=== PATIENT | female | born 2000 | race Caucasian/White ===

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

== ENCOUNTER 2021-09-14 16:58 | Emergency (ER) | payer SELFPAY ==
[2021-09-14 17:00] VITALS: BP 139/77; PULSE 110; RESP 15; TEMP 37; O2SAT 97; BMI 30.7
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
[2021-09-14 17:25] LABS: Basophils % 0.2 %; Eosinophils # 0.3 10^3/uL (0.0-0.8); Eosinophils % 2.9 %; Hemoglobin 13.9 g/dL (11.5-15.3); Lymphocytes # 2.3 10^3/uL (0.8-4.8); Lymphocytes % 25.5 %; Mean Corpuscular HGB Conc 34.8 g/dL (30.0-36.0); Mean Corpuscular Volume 83.3 fl (81-99); Mean Platelet Volume 9.7 fL (7.4-10.4); Monocytes # 0.5 10^3/uL (0.2-0.9); Monocytes % 5.7 %; Neutrophils # 5.95 10^3/uL (1.8-7.7); Neutrophils % 65.5 %; Nucleated Red Blood Cells % 0 %; Platelet Count 342 10^3/cmm (130-400); Red Cell Distribution Width 12.4 % (12.1-15.1); White Blood Count 9.1 10^3/uL (4.0-10.0)
[2021-09-14 17:35] LABS: Alanine Aminotransferase 18 U/L (0-33); Albumin Level 4.3 g/dL (3.5-5.2); Alkaline Phosphatase 76 IU/L (35-105); Anion Gap 16.6 (5-19); Aspartate Amino Transferase 14 U/L (0-32); Blood Urea Nitrogen 10 mg/dL (6-20); Calcium 9.8 mg/dL (8.5-10.5); Carbon Dioxide 24 mmol/L (22-29); Chloride 103 mmol/L (98-107); Globulin 2.8 g/dL (1.3-4.6); Glucose 145 mg/dL (65-115); Osmolality Calculated 292 mOsm/kg (285-295); Potassium 3.6 mmol/L (3.5-5.1); Sodium 140 mmol/L (136-145); Total Bilirubin 0.3 mg/dL (0.15-1.2); Total Protein 7.1 g/dL (6.6-8.7)
--- NOTE | 2021-09-14 18:31 | PC.NURSE ---
LEFT WRIST REDUCTION TIMEOUT CALLED 183 183 60MG PROPOFOL GIVEN BY DR. PAYAN 183 40MG PROPOFOL GIVEN BY DR. PAYAN 1833 FX REDUCED 1834 SPLINT APPLIED 1835 VS: 91 99% 148/84 1838 X RAY PT WAKING 1841
--- NOTE | 2021-09-14 18:35 | XRR_ITS ---
PROCEDURE INFORMATION: Exam: XR Left Hand Exam date and time: 09/14/2021 6:39 PM Age: 21 years old Clinical indication: Pain; Hand; Left; Additional info: Post reduction TECHNIQUE: Imaging protocol: Radiologic exam of the Left hand. Views: 3 or more views. COMPARISON: CR ( EX, ) 09/14/2021 5:28 PM FINDINGS: Bones/joints: Alignment of the 1st carpometacarpal joint is normal post reduction. No acute fracture. Soft tissues: Cast noted. XR/XR hand LT min 3V* [id number] IMPRESSION: Satisfactory alignment of the 1st carpometacarpal joint post reduction. No fracture.
[2021-09-14 18:43] VITALS: BP 148/84; PULSE 102; RESP 18; O2SAT 98
[2021-09-14] MEDS: propofol 10 mg/mL SDV 20 mL 100 MG IVP (18:46)
[2021-09-14] MEDS: ondansetron 2 mg/ML SDV 2 mL 4 MG IVP (19:19)
[2021-09-14 19:45] VITALS: BP 141/88; PULSE 97; RESP 16; TEMP 36.7; O2SAT 97
--- NOTE | 2021-09-16 15:09 | DCPLANNER ---
Addendum entered by Janet Buenrostro 09/24/21 13:49: Patient had a follow up appointment scheduled for 09.22.21 with Renato Esquivel at ortho - patient did attend appointment. Original Note: integrated logistics operations manager had message to schedule a follow up appointment for patient with ortho. integrated logistics operations manager sent patients information to the front office staff at ortho. Patients information will be printed and reviewed. Clinic will call patient with appointment information.
== END 2021-09-14 19:49 | disposition home or self-care (01) ==
PROVIDERS: Family Medicine; Emergency Provider Emergency Medicine
DX: S63.105A Unspecified dislocation of left thumb, initial encounter (principal); F17.210 Nicotine dependence, cigarettes, uncomplicated; V89.2XXA Person injured in unspecified motor-vehicle accident, traffic, initial encounter
CPT/HCPCS: 26770; 72040; 73110; 73130; 80053; 85025; 96374; 99284; J2405; J2704

== ENCOUNTER → 2021-09-22 08:42 | Outpatient (BNVA) | payer SELFPAY | PROVIDERS: Referring Provider Emergency Medicine; Visit Provider Nurse Practitioner Family | DX: S63.105A Unspecified dislocation of left thumb, initial encounter (principal); X58.XXXA Exposure to other specified factors, initial encounter | CPT/HCPCS: 73130 ==

== ENCOUNTER → 2021-10-20 09:01 | Outpatient (BNVA) | payer SELFPAY | PROVIDERS: Visit Provider Nurse Practitioner Family | DX: S63.105A Unspecified dislocation of left thumb, initial encounter (principal); V89.2XXA Person injured in unspecified motor-vehicle accident, traffic, initial encounter | CPT/HCPCS: 73130 ==

== ENCOUNTER 2022-04-04 07:19 | Outpatient (CLI) | payer BC, MEDICAID, SELFPAY ==
--- NOTE | 2022-04-04 07:33 | US_ITS ---
WS: [id number] ULTRASOUND OB COMPLETE TECHNIQUE: Complete ultrasound. CLINICAL INFORMATION: NORMAL FIRST -2ND TRIMESTER COMPARISON: None. FINDINGS: Closed cervix measuring 3.5 cm Single interuterine gestation is identified with vertex presentation. Placenta is posterior. Placenta grade 0. Normal amniotic fluid volume. cardiac activity: 144 BPM. SAM 12.07cm AGA: 21w4d MARY by ultrasound: 08/11/2022 Estimated weight: 462 g., %. BDP: 5.0 cm = 21w1d HC: 18.6 cm = 20w6d AC: 16.6 cm = 21w4d FEMUR LENGTH: 3.9 cm = 22w5d Anatomic survey: Anatomic survey is normal. Normal stomach. Kidneys and bladder are normal. Normal 3 vessel cord. Norm al 3 vessel cord insertion. Normal 4 chamber heart. Normal spine. Intracranial contents are normal. N ormal posterior fossa and cisterna magna. US/US OB >= 14 weeks fetus [id number] IMPRESSION: 1. Single intrauterine with visualized cardiac activity. AGA 21w4d w ith MARY 08/11/2022. 2. Placenta is posterior. No evidence of abruption or previa. 3. anatomic survey is normal. 4. Normal amniotic fluid volume.
== END 2022-04-04 07:20 | disposition home or self-care (01) ==
LOC: RAD 07:22
PROVIDERS: PCP Family Medicine; Visit Provider Family Medicine
DX: Z34.02 Encounter for supervision of normal first pregnancy, second trimester (principal)
CPT/HCPCS: 76805

== ENCOUNTER 2022-07-23 05:42 | Outpatient (CLI) | payer BC, MEDICAID, SELFPAY ==
[2022-07-23 05:35] VITALS: BMI 35.9
[2022-07-23 05:50] VITALS: BP 116/63; PULSE 100
[2022-07-23 06:05] VITALS: BP 108/62; PULSE 90
[2022-07-23 06:20] VITALS: BP 112/71; PULSE 94
[2022-07-23 06:23] VITALS: TEMP 36.1
[2022-07-23 06:35] VITALS: BP 115/66; PULSE 98
[2022-07-23 06:45] VITALS: BP 115/66; PULSE 98; TEMP 36.1
[2022-07-23 17:56] LABS: Nitrazine Paper, PH Negative
== END 2022-07-23 06:45 | disposition home or self-care (01) ==
LOC: OPOB 05:42 → OBGYN 05:43
PROVIDERS: PCP Family Medicine; Visit Provider Family Medicine
DX: O26.899 Other specified pregnancy related conditions, unspecified trimester (principal); N89.8 Other specified noninflammatory disorders of vagina; Z3A.00 Weeks of gestation of pregnancy not specified
CPT/HCPCS: 59025; 83986; 99211

== ENCOUNTER 2022-08-09 05:06 | Inpatient (IN) | payer BC, MEDICAID, SELFPAY ==
[2022-08-08] VITALS (9 sets, daily range): BP systolic 116–136; BP diastolic 61–84; PULSE 77–107; RESP 16; O2SAT 98–99
[2022-08-08] MEDS: dextrose 5%-lactated ringers 1,000 ML 125 ML IV (20:21)
[2022-08-08] MEDS: ampicillin 2,000 MG in sodium chloride 0.9% (plus) 50 ML 100 MG IV (20:22)
[2022-08-08 20:27] LABS: Basophils % 0.1 %; Eosinophils # 0.2 10^3/uL (0.0-0.8); Eosinophils % 1.6 %; Hematocrit 37.6 % (37.0-47.0); Hemoglobin 12.3 g/dL (11.5-15.3); Lymphocytes # 2.6 10^3/uL (0.8-4.8); Lymphocytes % 24.4 %; Mean Corpuscular HGB Conc 32.7 g/dL (30.0-36.0); Mean Corpuscular Hemoglobin 27.6 pg (28.0-34.0); Mean Corpuscular Volume 84.3 fl (81-99); Mean Platelet Volume 10.3 fL (7.4-10.4); Monocytes # 0.5 10^3/uL (0.2-0.9); Neutrophils # 7.41 10^3/uL (1.8-7.7); Neutrophils % 68.4 %; Nucleated Red Blood Cells % 0 %; Platelet Count 295 10^3/cmm (130-400); Red Blood Count 4.46 10^6/uL (4.1-5.3); Red Cell Distribution Width 13.2 % (12.1-15.1); White Blood Count 10.8 10^3/uL (4.0-10.0)
[2022-08-08] MEDS: miSOPROStol 100 mcg tablet 25 MCG VAGINAL (20:30)
[2022-08-08] MEDS: ampicillin 1,000 MG in sodium chloride 0.9% (plus) 50 ML 100 MG IV (23:42)
[2022-08-08] MEDS: promethazine 25 mg/mL SDV 1 mL IM (23:43)
[2022-08-08] MEDS: morphine 4 mg/mL SDV 1 mL 8 MG IM (23:44)
[2022-08-09] VITALS (202 sets, daily range): BP systolic 91–187; BP diastolic 56–121; PULSE 59–118; RESP 15–18; TEMP 26.8–37; O2SAT 97–100
[2022-08-09] MEDS: miSOPROStol 100 mcg tablet 25 MCG VAGINAL ×2 (00:30→04:29)
[2022-08-09] MEDS: lactated ringers 1,000 ML 999 ML IV ×2 (02:33→07:36)
[2022-08-09] MEDS: dextrose 5%-lactated ringers 1,000 ML 125 ML IV (03:39)
[2022-08-09] MEDS: ampicillin 1,000 MG in sodium chloride 0.9% (plus) 50 ML 100 MG IV ×3 (03:40→11:58)
[2022-08-09] MEDS: fentaNYL 50 mcg/mL INJ 2mL IVP (04:28)
--- NOTE | 2022-08-09 06:49 | PM.OPHPUD ---
Labor & Delivery H&P Update Date of Procedure: August 09, 2022 Date H&P Performed: 08/05/22 Changes to previous documentation: None Admission Diagnosis: 22-year-old 1 at 39 weeks estimated gestational age presenting for induction Primary indication for procedure: Elective induction Planned procedure: Vaginal delivery Other information: The patient is an otherwise healthy 22-year-old female who presents to the hospital last night for elective induction. We discussed the risks of elective induction including increased risk of a and operative vaginal delivery. The patient understood these risks and wished to proceed. Her blood type is O+ her antibody screen is negative she passed her glucose screen she was GBS positive she is rubella nonimmune the remainder of her infectious disease profile was within normal limits. Related Problem List Diagnoses (1) 39 weeks gestation of : (2) Group beta Strep positive: A&P Assessment and plan (1) 39 weeks gestation of : I anticipate routine induction. She has received Cytotec 25 mcg x 3. She is on GBS protocol. At this time is expected that she will have a vaginal delivery. Status: Acute (2) Group beta Strep positive: Status: Acute
--- NOTE | 2022-08-09 08:04 | ANES.PREANE2 ---
Pre-Anesthetic Assessment Height/Weight: Height 1.6 m Weight 203 g Temp Pulse Resp BP Pulse Ox O2 Del Method 97.3 F L 93 16 134/95 99 Room Air 08/09/22 06:43 08/09/22 08:00 08/09/22 04:28 08/09/22 07:59 08/09/22 08:00 08/09/22 05:00 Epidural Familial anesthetic complications: None Was Beta Brooke taken within 24 hours: N/A Was Clonidine taken within 24 hours: N/A Social No alcohol and No tobacco Exam alert, oriented x 3, clear to auscultation bilaterally and regular rate & rhythm Airway Mallampati: Class II Dentition: full Anesthetic Plan ASA status: 2 Anesthesia: Regional (specify below) (epidural) Risk of > 500 ml blood loss (7ml/kg in children): Yes, adequate IV access and fluids planned Medications/Allergies Home Medications Medication Instructions Recorded Confirmed Last Taken Type No Known Home Medications 08/08/22 08/08/22 Unknown History Allergies Allergy/AdvReac Type Severity Reaction Status Date / Time No Known Allergies Allergy Verified 08/08/22 20:07 Current Medications Generic Name Dose Route Start Last Admin Trade Name Freq PRN Reason Stop Dose Admin Fentanyl 25 - 100 mcg 08/08/22 19:55 08/09/22 04:28 Fentanyl 50 Mcg/Ml Inj 2ml IVP 25 mcg Q1H PRN Administration SEVERE PAIN Dextrose/Lactated Ringer's 1,000 mls @ 125 mls/hr 08/08/22 20:00 08/09/22 03:39 Dextrose 5%-Lactated Ringers IV 125 mls/hr .Q8H LEATHA Administration Lactated Ringer's 1,000 mls @ 999 mls/hr 08/08/22 19:55 08/09/22 07:36 Lactated Ringers IV 999 mls/hr .Q1H1M PRN Administration Per L&D Rescitation Protocol Ampicillin Sodium 1,000 mg/ 50 mls @ 100 mls/hr 08/08/22 23:45 08/09/22 07:36 Sodium Chloride IV 100 mls/hr Q4H LEATHA Administration Protocol Ropivacaine 100 mg in 50 mls @ 10 mls/hr 08/09/22 07:15 08/09/22 07:37 Naropin Syringe EPIDURAL 10 mls/hr .Q5H LEATHA Administration PFSH Anesthesia Medical History No pertinent past medical history Surgical History No pertinent past surgical history Social History Smoking and tobacco status: current some day smoker Alcohol intake: current Female Reproductive History : 1 Data Anesthesia 08/08/22 19:10 Short CBC 08/08/22 Range/Units 19:10 WBC 10.8 H (4.0-10.0) 10^3/uL Hgb 12.3 (11.5-15.3) g/dL Hct 37.6 (37.0-47.0) % MCV 84.3 (81-99) fl Plt Count 295 (130-400) 10^3/cmm Neut % (Auto) 68.4 % Neut # (Auto) 7.41 (1.8-7.7) 10^3/uL Cardiac Studies: No Data to Display
--- NOTE | 2022-08-09 08:05 | P.ANES_ITS ---
Anesthesia Procedures Procedure/Date: 08/09/22 Epidural: Time Out Performed: Yes Consents Signed: Procedure Consent Consent: requested by attending/covering physician, from patient, from other, risks and benefits reviewed, patient agrees to proceed and emergency procedure Lumbar Level: L3-L4 Epidural position: sitting Epidural procedure: ster ile prep of area, 1% lidocaine to numb the area, 18 g needle, negative for paresthesia passed, neg for paresthesia, test dose given, 1.5% xylocaine 1:200k epi (5 cc), 0.2% Ropivacaine bolus ml (5), placed PCEA, no systemic response, sterile dressing applied, L.U.D. no apparent complications and 0.2% Ropiavacaine @ mls/hr (10) Additional Comments: CLIFF at 6 cm, threaded to 12 cm
--- NOTE | 2022-08-09 13:46 | PM.DELIVERY ---
Delivery Note: Date of delivery: August 09, 2022 Pre-delivery diagnoses: 82-year-old 1 at 39 weeks estimated gestational age in active labor Post-delivery diagnoses: Status post spontaneous vaginal delivery Procedure: Spontaneous vaginal delivery Op report anesthesia: Epidural Pre-Delivery Course: The patient presented to the hospital the night prior to delivery was placed on Cytotec 25 mcg x 3. An epidural was placed. An amniotomy was performed. She progressed to complete without difficulty. She was GBS positive and was placed on group B strep protocol through the night. Delivery: DELIVERY: The patient progressed to complete without difficulty. She delivered a female with a weight of 6 pounds 6 ounces with Apgars of 9, 9. The baby was delivered from the NEFTALI position. and placed on the mother's abdomen. The cord was then clamped and cut. There was no nuchal cord. There was no meconium. The placenta and 3 vessel cord were delivered intact shortly thereafter. The perineum and vaginal vault were carefully examined. 2 vaginal wall first-degree tears were noted which were not bleeding significantly. No repair was required.. Both the mother and the baby were in stable condition. Post-Delivery Status: Good A&P Assessment and plan (1) Spontaneous vaginal delivery: I anticipate routine care. (2) Group beta Strep positive: (3) 39 weeks gestation of : Coding Level of Care Code Acute Code for Chg Fwd Diagnoses Spontaneous vaginal delivery O80 Group beta Strep positive B95.1 39 weeks gestation of Z3A.39
[2022-08-09] MEDS: docusate sodium 100 mg Capsule PO (19:00)
[2022-08-09] MEDS: ibuprofen 800 mg tablet PO (22:56)
[2022-08-09] MEDS: HYDROcodone-acetaminophen 5-325 mg Tablet PO (22:56)
[2022-08-10 00:50] VITALS: BP 112/81; PULSE 98; RESP 16; TEMP 36.8
[2022-08-10 03:53] VITALS: BP 122/81; PULSE 86; RESP 15; TEMP 36.9; O2SAT 98
[2022-08-10 03:57] LABS: Hematocrit 34.2 % (37.0-47.0); Mean Corpuscular HGB Conc 32.2 g/dL (30.0-36.0); Mean Corpuscular Hemoglobin 27.6 pg (28.0-34.0); Mean Corpuscular Volume 85.9 fl (81-99); Mean Platelet Volume 9.6 fL (7.4-10.4); Platelet Count 206 10^3/cmm (130-400); Red Blood Count 3.98 10^6/uL (4.1-5.3); Red Cell Distribution Width 13.4 % (12.1-15.1); White Blood Count 11.9 10^3/uL (4.0-10.0)
--- NOTE | 2022-08-10 07:37 | PM.OBGYDC ---
Discharge Providers LEARNING PROGRAM MANAGER Date of Admission: 08/09/22 05:06 Date of Discharge: 08/10/22 Attending Provider at Admission: Saran Tamez MD Attending Provider at Discharge: Saran Tamez MD Primary Care Provider: Saran Tamez MD Diagnoses at Discharge Discharge Diagnosis (1) Spontaneous vaginal delivery: Status: Acute (2) Group beta Strep positive: Status: Acute (3) 39 weeks gestation of : Status: Acute Reason for Visit Reason for Visit: induction Hospital Course Hospital Course The patient presented to the hospital for induction. Her induction was unremarkable. Her delivery was unremarkable. Her course was unremarkable. Her bleeding has been within normal limits. Her pain is been well controlled. She is breast-feeding well. Information Peripartum Data: Delivery Method: Vaginal Physical Exam Narrative: The patient is alert. She appears comfortable. Her heart has a regular rate and rhythm with no murmurs appreciated. Lungs are clear to auscultation bilaterally. Her fundus is firm and below the umbilicus. Urinary Catheter Management: Martinez: Cath Placed During This Visit: yes, but has since been removed by the nurse Reason for Continuing Indwelling Catheter: Decision to DC Catheter Urinary Catheter Date of Insertion: 08/09/22 Urinary Catheter Time of Insertion: 08:10 Date Urinary Catheter Removed: 08/09/22 Time Urinary Catheter Discontinued: 13:15 Discharge Data Studies Completed and Pending Laboratory Results WBC 11.9 10^3/uL (4.0-10.0) H 08/10/22 03:45 RBC 3.98 10^6/uL (4.1-5.3) L 08/10/22 03:45 Hgb 11.0 g/dL (11.5-15.3) L 08/10/22 03:45 Hct 34.2 % (37.0-47.0) L 08/10/22 03:45 MCV 85.9 fl (81-99) 08/10/22 03:45 MCH 27.6 pg (28.0-34.0) L 08/10/22 03:45 MCHC 32.2 g/dL (30.0-36.0) 08/10/22 03:45 RDW 13.4 % (12.1-15.1) 08/10/22 03:45 Plt Count 206 10^3/cmm (130-400) 08/10/22 03:45 MPV 9.6 fL (7.4-10.4) 08/10/22 03:45 Neut % (Auto) 68.4 % 08/08/22 19:10 Lymph % (Auto) 24.4 % 08/08/22 19:10 Davis % (Auto) 5.0 % 08/08/22 19:10 Eos % (Auto) 1.6 % 08/08/22 19:10 Baso % (Auto) 0.1 % 08/08/22 19:10 Neut # (Auto) 7.41 10^3/uL (1.8-7.7) 08/08/22 19:10 Lymph # (Auto) 2.6 10^3/uL (0.8-4.8) 08/08/22 19:10 Davis # (Auto) 0.5 10^3/uL (0.2-0.9) 08/08/22 19:10 Eos # (Auto) 0.2 10^3/uL (0.0-0.8) 08/08/22 19:10 Baso # (Auto) 0.0 10^3/uL (0.0-0.1) 08/08/22 19:10 Nucleated RBC % (auto) 0 % 08/08/22 19:10 Nucleated RBCs # 0.0 /100WBC 08/08/22 19:10 Vitals Last Vital Signs Temp 98.4 F 08/10/22 03:53 Pulse 86 08/10/22 03:53 Resp 15 08/10/22 03:53 BP 122/81 08/10/22 03:53 Pulse Ox 98 08/10/22 03:53 O2 Del Method Room Air 08/10/22 03:53 Discharge Plan Discharge Patient Disposition: Home Condition: Stable Prescriptions: New ibuprofen 800 mg Tablet 800 mg PO TID Qty: 45 0RF -U 106.5-1 mg Capsule 1 cap PO DAILY Qty: 90 0RF Discharge Orders: Discharge Order (Routine); Ordered 08/10/22 Ordered By: Saran Tamez Referrals: Saran Tamez MD [Primary Care Provider] - 6 Weeks Discharge Diet: Usual diet Discharge Activity: Limit activity as instructed Patient Instructions: Depression (DC), Bleeding (DC), Preeclampsia and Eclampsia After Delivery (GEN), Hemorrhage (DC), OB Discharge Report, OB Food/Drug Interaction Guide, OB Care at Home, Opioid Safety, OB Vaginal Deliveries Discharge Attestations LEARNING PROGRAM MANAGER Time Spent in Discharge Care*: less than 30 min Coding Level of Care Code Acute Code for Chg Fwd Diagnoses Spontaneous vaginal delivery O80 Group beta Strep positive B95.1 39 weeks gestation of Z3A.39
--- NOTE | 2022-08-10 08:00 | ANE.PACU2 ---
Inpatient post-anesthesia follow up: Airway intact: Yes Vital signs: Temperature 99.0 F Pulse Rate 82 Respiratory Rate 16 Blood Pressure 114/78 Pulse Oximetry 99 Oxygen Delivery Me thod Room Air Oxygen Flow Rate Fraction of Inspir ed Oxygen Hydration adequate: Yes Nausea and vomiting: Yes Pain level: 1 Mental status: Baseline
[2022-08-10] MEDS: ibuprofen 800 mg tablet PO (09:29)
[2022-08-10] MEDS: docusate sodium 100 mg Capsule PO (09:29)
[2022-08-10 09:40] VITALS: BP 114/78; PULSE 82; RESP 16; TEMP 37.2; O2SAT 99
[2022-08-10 14:00] VITALS: BP 114/78; PULSE 82; RESP 16; TEMP 37.2; O2SAT 99
== END 2022-08-10 14:28 | disposition home or self-care (01) | DRG 807 ==
LOC: OPOB 05:06 → OBGYN 05:06
PROVIDERS: Admitting Provider Family Medicine; PCP Family Medicine; Visit Provider Family Medicine
DX: O99.824 Streptococcus B carrier state complicating childbirth (principal); Z37.0 Single live birth; O70.0 First degree perineal laceration during delivery; Z3A.39 39 weeks gestation of pregnancy; Z87.891 Personal history of nicotine dependence
CPT/HCPCS: 36415; 51702; 59025; 59409; 85025; 85027; 96372; 96374; J0290; J2270; J2550; J2795; J3010; J7120; J7121

== ENCOUNTER 2024-09-09 19:09 | Emergency (ER) | payer BC, MEDICAID, SELFPAY ==
--- OUTSIDE RECORDS SUMMARY | 2018-06-11 03:30 | XMS_ITS | Continuity of Care Document ---
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 take no more than 4 within 24 hours. - Active Periogard 0.12 % mouthwash This is an oral rinse. Swish with one capful for 30 seconds then spit out. Twice a day. DO NOT EAT OR DRINK FOR ONE HOUR FOLLOWING. - Active 1 Bottle Procedures Procedure Date Removal Of Impacted Tooth Soft Tissue Removal Of Impacted Tooth Soft Tissue Removal Of Impacted Tooth Soft Tissue Removal Of Impacted Tooth Soft Tissue IV Moderate (conscious) Sedation/analges ia, First 15 Min EDR Approval Note Limited Oral Evaluation Problem Focused EDR Approval Note Advance Directives Directive Yes / No Effective Date File Name No Information Encounters Encounter Description Practice Location Reason(s) For Visit Diagnoses Date Provider Providers Copied on Encounter [facility], [id number] [place], [place], [id number], [place] tel:[phone] [facility] Encounter for dental exam and cleaning w/o abnormal findings No Information [facility], [id number] [facility], [place], [place], [id number], [place] tel:[phone] [facility] Encounter for dental exam and cleaning w/o abnormal findings No Information Family History Family Member Type Diagnosis Age At Onset No Information Payers Payer name Insurance type Covered alliance party ID Yuliet thomas(s) Jessica [employer] CI [id number] Social History Type Description Quantity Date Captured Comments Alcohol Use Details No Caffeine Use Details Unknown Tobacco Use Status Current non-smoker 19 Smoking Status Never smoker Non-Smoking Tobacco Use Details : No Details Available : No Details Available Sex Female Chief Complaint And Reason For Visit No Information Reason For Referral Reason For Referral No Information History Of Present Illness Encounter Date Complaint History Of Prese nt Illness No Information Functional Status Date Functional Assessmen t No Information Instructions Date Instruction Additional Infor krishanion Lifestyle education Related to D ental Examination Assessments Type Assessment Date No Information Patient Care Teams Name Effective Dates (start - stop) Status Members No Information
--- NOTE | 2024-09-09 19:20 | XRR_ITS ---
PROCEDURE INFORMATION: Exam: XR Right Foot Exam date and time: 09/09/2024 7:33 PM Age: 24 years old Clinical indication: Injury or trauma; Other: Dropped toy on RT foot; Blunt trauma; Right TECHNIQUE: Imaging protocol: Radiologic exam of the right foot. Views: 3 or more views. COMPARISON: CR XR foot RT min 3V* [id number] 11/27/2018 11:15 PM FINDINGS: Bones/joints: Normal. Soft tissues: Normal. XR/XR foot RT min 3V* [id number] IMPRESSION: No acute findings.
[2024-09-09 19:22] VITALS: BP 123/85; PULSE 107; RESP 16; TEMP 36.9; O2SAT 98; BMI 35.4
--- NOTE | 2024-09-09 19:34 | W.ED.EXTPRO ---
HPI - Extremity Problem General: Chief complaint: Extremity Problem,Nontraumatic Stated complaint: Rt Ankle Injury Time Seen by Provider: 09/09/24 19:23 History of Present Illness: 24-year-old female who presents emergency room with right medial plantar midfoot pain. This started yesterday and has worsened. She says she hit it on a cart but did not really think much of it but it is continued to hurt worse than has some bruising. No obvious deformities. Neurovascular intact. Related Data Previous Rx's ?Medication ?Instructions ?Recorded ibuprofen 800 mg tablet 800 mg PO TID #45 tabs 08/10/22 multivitamin no.51-ferrous 1 cap PO DAILY #90 caps 08/10/22 fumarate 106.5 mg-folic acid 1 mg capsule (-U) diclofenac sodium 50 mg 50 mg PO BID PRN pain #14 tabs 09/09/24 tablet,delayed release Allergies Allergy/AdvReac Type Severity Reaction Status Date / Time No Known Allergies Allergy Verified 08/08/22 20:07 Review of Systems Narrative: Constitutional symptoms: Negative except as documented in HPI. Skin symptoms: Negative except as documented in HPI. Eye symptoms: Negative except as documented in HPI. ENMT symptoms: Negative except as documented in HPI. Respiratory symptoms: Negative except as documented in HPI. Cardiovascular symptoms: Negative except as documented in HPI. Gastrointestinal symptoms: Negative except as documented in HPI. Genitourinary symptoms: Negative except as documented in HPI. Musculoskeletal symptoms: Negative except as documented in HPI. Neurologic symptoms: Negative except as documented in HPI. Psychiatric symptoms: Negative except as documented in HPI. Endocrine symptoms: Negative except as documented in HPI. [facility] ED PFSH: Medical History No pertinent past medical history Surgical History No pertinent past surgical history Social History Smoking and tobacco/nicotine status: current some day tobacco/nicotine user Alcohol intake: current Physical Exam Narrative: EXAM NARRATIVE: General: Alert, no acute distress. Skin: warm and dry Head: Normocephalic Neck: Trachea midline Eye: Extraocular movements are intact. Ears, nose, mouth and throat: Oral mucosa moist Respiratory: Respirations are non-labored Musculoskeletal: Normal ROM, no obvious deformities. Some bruising on the medial arch of the foot. Tender to palpation Gastrointestinal: Abdomen does not appear distended Neurological: Alert and oriented, No focal neurological deficit observed. Psychiatric: Cooperative, appropriate mood & affect. Course Vital Signs: Vital signs: Vital Signs Temperature 98.4 F 09/09/24 19:22 Pulse Rate 107 H 09/09/24 19:22 Respiratory Rate 16 09/09/24 19:22 Blood Pressure 123/85 09/09/24 19:22 Pulse Oximetry 98 09/09/24 19:22 Oxygen Delivery Me thod Room Air 09/09/24 19:22 MDM - Extremity (Nontraumatic) Medical Decision Making X-ray Of the right foot: No obvious fractures or deformities. films were interpreted by myself the emergency room provider and pending final radiology review. Assessment and plan: Foot injury ?Toradol in the emergency room - Discharged home - Discussed plan with patient. Answered any questions. - Evaluation and treatment of this problem were appropriate in the emergency setting. XR interpretation done by ED provider, pending radiology final review Discharge Plan Discharge Patient Disposition: Home Clinical Impression: Foot injury Condition: Stable Prescriptions: New diclofenac sodium 50 mg tablet,delayed release (DR/EC) 50 mg PO BID PRN (Reason: pain) Qty: 14 0RF No Action ibuprofen 800 mg Tablet 800 mg PO TID Qty: 45 0RF -U 106.5-1 mg Capsule 1 cap PO DAILY Qty: 90 0RF Discharge Orders: Discharge ED (Routine); Ordered 09/09/24 Ordered By: Tonja Wharton Referrals: Saran Tamez MD [Primary Care Provider, Family Practice] Patient Instructions: Opioid Safety, Pain Management, Patient Portal & Kori Instructions Activity Restrictions/Additional Instructions: Thank you for choosing [facility] for your healthcare needs today. You have been screened and evaluated and felt safe for discharge. Health conditions do change or evolve sometimes and as such it is important that you follow up with your Primary Doctor to be re checked, 3-5 days is a general good time frame for follow up. You are always welcome to return to the ED for re assessment if your symptoms are worsening or you have new concerns Print Language: [place] Coding Level of Care Code ED Senior Licensing Manager for Ric Reno
[2024-09-09] MEDS: ketorolac 60 mg/2 mL INJ IM (19:37)
[2024-09-09 19:54] VITALS: BP 113/74; PULSE 93; RESP 16; O2SAT 95
== END 2024-09-09 19:53 | disposition home or self-care (01) ==
PROVIDERS: Emergency Provider Emergency Medicine; PCP Family Medicine
DX: S99.921A Unspecified injury of right foot, initial encounter (principal); Z72.0 Tobacco use; X58.XXXA Exposure to other specified factors, initial encounter
CPT/HCPCS: 73630; 96372; 99284; J1885

== ENCOUNTER 2025-02-13 04:43 | Emergency (ER) | payer SELFPAY ==
[2025-02-13 04:47] VITALS: BP 125/78; PULSE 88; RESP 16; TEMP 36.9; O2SAT 95; BMI 35.0
--- NOTE | 2025-02-13 05:18 | W.ED.DENTAL ---
HPI - Dental/Oral General: Chief complaint: Dental/Oral Stated complaint: right side dental sweeling and pain Time Seen by Provider: 02/13/25 04:49 History of Present Illness: 24-year-old female no significant past medical history, presenting with onset this evening of right sided facial/jaw pain. Patient reports that about a month ago she was hit in the mouth with a toy that caused a crack in a tooth in her right lower premolar, she initially went to an ER and was given amoxicillin 3 weeks ago, she reports that she took a dose but then stopped taking it for a while however started developing pain about a week ago and started on amoxicillin, reports that the pain was persistent over the last week but she was generally well and was planning on going to a dental ER later today. However overnight she woke up with significant swelling to her right jaw which prompted her to come seek medical care. No fevers, no difficulty with swallowing Related Data Previous Rx's ?Medication ?Instructions ?Recorded ibuprofen 800 mg tablet 800 mg PO TID #45 tabs 08/10/22 multivitamin no.51-ferrous 1 cap PO DAILY #90 caps 08/10/22 fumarate 106.5 mg-folic acid 1 mg capsule (-U) diclofenac sodium 50 mg 50 mg PO BID PRN pain #14 tabs 09/09/24 tablet,delayed release clindamycin HCl 300 mg capsule 300 mg PO TID 10 days #30 caps 02/13/25 (Cleocin HCl) oxycodone-acetaminophen 5 mg-325 1 tab PO Q6H PRN pain 3 days #12 02/13/25 mg tablet (Percocet) tabs Allergies Allergy/AdvReac Type Severity Reaction Status Date / Time No Known Allergies Allergy Verified 02/13/25 04:52 PFSH ED PFSH: Medical History No pertinent past medical history Surgical History No pertinent past surgical history Social History Smoking and tobacco/nicotine status: current some day tobacco/nicotine user Alcohol intake: current Physical Exam Narrative: EXAM NARRATIVE: Gen: A&Ox4, no acute distress, nontoxic appearing HEENT: Normocephalic, atraumatic, no scleral icterus, external ears normal, moist mucous membranes, there is significant swelling to the right external face predominantly to the right mandibular region, on oropharyngeal exam there is a cracked tooth to the right lower premolar, there is surrounding erythema and inflammation to the gingiva without a visible abscess Neck: Supple, full range of motion, no observable masses Lungs: No Respiratory distress, Lungs clear to auscultation bilaterally no rales, rhonchi, wheezing CV: Regular rate and rhythm, no murmur, no pitting edema to lower extremities bilaterally Abdomen: Soft, nondistended, nontender to palpation MSK: No joint swelling, FROM all 4 extremities Skin: No rashes, petechiae, lesions. Normal color per patient. Neuro: Alert and oriented, no slurred speech, sensation and strength grossly intact all 4 extremities Psych: Appropriate for situation. Course Vital Signs: Vital signs: Vital Signs Temperature 98.5 F 02/13/25 04:47 Pulse Rate 88 02/13/25 04:47 Respiratory Rate 16 02/13/25 04:47 Blood Pressure 125/78 02/13/25 04:47 Pulse Oximetry 95 02/13/25 04:47 Oxygen Delivery Me thod Room Air 02/13/25 04:47 MDM - Dental/Oral Medical Decision Making 24-year-old female presenting the emergency department with dental pain and now new onset jaw swelling overnight after sustaining a dental cracked tooth injury from trauma approximately a month ago, patient has been on antibiotics for the last few days without improvement, is planning on seeing a dentist later today, onset of jaw swelling raises concern for dental abscess with surrounding infection, she otherwise is clinically well-appearing with a stable airway and no fever, will change antibiotic to clindamycin, pain control, recommend dental evaluation today as already planned for possible extraction of the tooth and further evaluation. Given return precautions for worsening dental swelling or lack of improvement after dental evaluation and antibiotics to consider repeat evaluation in the emergency department for consideration of osteomyelitis of the jaw although currently clinical concern for this is relatively low. Lab Data Laboratory Results HCG, Qual Negative (Negative) 02/13/25 05:20 No radiology studies performed this visit Discharge Plan Discharge Patient Disposition: Home Clinical Impression: Dental abscess Condition: Stable Prescriptions: New clindamycin HCl [Cleocin HCl] 300 mg capsule 300 mg PO TID 10 Days Qty: 30 0RF oxycodone-acetaminophen [Percocet] 5-325 mg tablet 1 tab PO Q6H PRN (Reason: pain) 3 Days Qty: 12 0RF No Action ibuprofen 800 mg Tablet 800 mg PO TID Qty: 45 0RF -U 106.5-1 mg Capsule 1 cap PO DAILY Qty: 90 0RF diclofenac sodium 50 mg tablet,delayed release (DR/EC) 50 mg PO BID PRN (Reason: pain) Qty: 14 0RF Discharge Orders: Discharge ED (Routine); Ordered 02/13/25 Ordered By: Andrew Vance Referrals: Saran Tamez MD [Primary Care Provider, Family Practice] Patient Instructions: Opioid Safety, Pain Management, Patient Portal & Kori Instructions, Dental Abscess (ED) Print Language: [place]ese Coding Level of Care Code ED Health Education Teacher for Ric Reno
[2025-02-13 05:30] LABS: HCG Qualitative Urine. Negative (Negative)
[2025-02-13 06:15] VITALS: RESP 18
[2025-02-13] MEDS: oxyCODONE-APAP 5-325 mg Tablet 1 TAB PO (06:15)
== END 2025-02-13 06:22 | disposition home or self-care (01) ==
PROVIDERS: Emergency Provider Student in an Organized Health Care Education/Training Program; PCP Family Medicine
DX: K04.7 Periapical abscess without sinus (principal); Z72.0 Tobacco use
CPT/HCPCS: 81025; 96372; 99284; J1885; J9999